=== PATIENT | male | born 1960 | race Caucasian/White ===

== ENCOUNTER 2024-11-16 18:44 | Emergency (ER) | payer OTHER, SELFPAY ==
[2024-11-16 18:47] VITALS: BP 149/92
--- NOTE | 2024-11-16 18:56 | ED.GENMED ---
ED Provider Triage
<John Mckay PA-C - Last Filed: 11/16/24 18:57>
-
Patient seen by provider in Triage?: Seen in Triage
64-year-old male presents with acute nosebleed beginning several hours prior to arrival. Primarily from the left nare. Not on blood thinners. There is mild amount of active bleeding from the left anterior nare, unable to visualize source, placed
epinephrine soaked cottonball into the nare with nasal clamp applied with good hemostasis
History of Present Illness
<John Mckay PA-C - Last Filed: 11/16/24 18:57>
General
Chief Complaint: Nose Bleed
Time Seen by Provider: 11/16/24 21:14
<Meliton Butler MD - Last Filed: 11/16/24 23:28>
General
Source: patient
Exam Limitations: none
History of Present Illness
History of Present Illness:
Patient with a nosebleed from the left nares. Started after blowing hard after eating dinner. History of chronic nasal congestion. No other bleeding issues.
Past History
<John Mckay PA-C - Last Filed: 11/16/24 18:57>
Past History
ED Past Medical History: HTN and Other (IBS, migraines)
ED Past Surgical History: Orthopedic and Other
Social History
Tobacco: Non-smoker
Alcohol: Occasional
Drug: None
Personal: Single
Living: with family
Employment: Employed
Family History
Family History: Other
Review of Systems
<Meliton Butler MD - Last Filed: 11/16/24 23:28>
Review of Systems
All Other Systems: Not applicable
Phy Exam
<Meliton Butler MD - Last Filed: 11/16/24 23:28>
Physical Exam
Physical Exam:
General: Nontoxic appearing in no distress
Skin: Warm and dry, no rash
Neuro: Alert, nontoxic, grossly nonfocal
Psychiatric: Good eye contact and appropriate
ENT:. Small cotton swab in the left nares. A small amount of blood. Nasal pincher in place. No active bleeding. Removed. Significant boggy turbinates but no active bleeding from the left or right side. Posterior pharynx clear.
Course
<John Mckay PA-C - Last Filed: 11/16/24 18:57>
Vital Signs
Initial and Last Documented VS:
Initial Vital Signs
Temp Pulse Resp BP Pulse Ox
98.2 F 89 18 149/92 98
11/16/24 18:47 11/16/24 18:47 11/16/24 18:47 11/16/24 18:47 11/16/24 18:47
Last Documented Vital Signs
Temp Pulse Resp BP Pulse Ox
98.2 F 64 18 123/77 98
11/16/24 18:47 11/16/24 22:45 11/16/24 22:45 11/16/24 22:45 11/16/24 18:47
<eMliton Butler MD - Last Filed: 11/16/24 23:28>
Vital Signs
Initial and Last Documented VS:
Initial Vital Signs
Temp Pulse Resp BP Pulse Ox
98.2 F 89 18 149/92 98
11/16/24 18:47 11/16/24 18:47 11/16/24 18:47 11/16/24 18:47 11/16/24 18:47
Last Documented Vital Signs
Temp Pulse Resp BP Pulse Ox
98.2 F 64 18 123/77 98
11/16/24 18:47 11/16/24 22:45 11/16/24 22:45 11/16/24 22:45 11/16/24 18:47
Procedures
<Meliton Butler MD - Last Filed: 11/16/24 23:28>
Nosebleed
Drug treatment: Lidocaine and Epinephrine
Treatment: Merocel packing
Post treatment bleeding: none- good control
<Meliton Butler MD - Last Filed: 11/16/24 23:28>
*Critical Care Note
Total Time (30-74mins, 75-104mins- exclusive of procedures): Not Applicable
<Meliton Butler MD - Last Filed: 11/16/24 23:28>
Update Note
Update Note:
Recheck. No obvious source of bleeding after initial epinephrine soaked gauze. Merisel placed. Recheck no bleeding.
ED Attending Note
<John Mckay PA-C - Last Filed: 11/16/24 18:57>
-
Portions of this chart may have been created with voice recognition software.� Occasional wrong word or��sound alike� substitutions may have occurred due to the inherent limitations of voice recognition software.
Discharge Plan
Departure
Patient Disposition: Home (Routine Discharge)
Date of Disposition: 11/16/24
Time of Disposition: 22:26
Patient with high blood pressure during this ER visit?: Yes
Discharge Problem:
Epistaxis
Instructions: Nosebleeds (DC)
Prescriptions:
No Action
ibuprofen [Advil Liqui-Gel] 200 MG capsule
200 mg PO PRN PRN (Reason: headache)
levothyroxine 50 MCG tablet
50 mcg PO DAILY
losartan-hydrochlorothiazide 1 EACH tablet
1 ea PO DAILY
ondansetron 4 MG tablet,disintegrating
4 mg PO TIDPRN PRN (Reason: nausea/vomiting) Qty: 14 0RF
alprazolam 0.5 MG tablet
0.5 mg PO Q8HPRN PRN (Reason: anxiety) Qty: 30 0RF
pantoprazole 40 MG tablet,delayed release (DR/EC)
40 mg PO BID Qty: 20 0RF
dicyclomine 10 MG capsule
10 mg PO QID PRN (Reason: abdominal pain) Qty: 20 0RF
Referrals:
Orestes Rolle MD [Active] - Follow up in 2-3 days
UNKNOWN - PT DOES,NOT KNOW [Family Provider] -
Activity Restrictions/Additional Instructions:
Packing removal in 3 to 4 days
Again, I am here this Tuesday from 1:3-9 if ENT is unable to see you
Interventions
Interventions:
*Risk Screen - Suicide Last Done: 11/16/24 20:40
*General Assessment Last Done: 11/16/24 18:47
*Neglect/Abuse Screening Last Done: 11/16/24 20:40
*Nursing Disposition Last Done: 11/16/24 22:47
ED-EENT Assessment Last Done: 11/16/24 20:39
Discharge Date and Time
Discharge Date/Time: 11/16/24 22:47
Print Language: UPPER SORBIAN
[2024-11-16 22:45] VITALS: BP 123/77
== END 2024-11-16 22:47 | disposition home or self-care (01) ==
LOC: EMR 18:44
PROVIDERS: EMERGENCY PHYSICIAN Emergency Medicine
DX: R04.0 Epistaxis (principal); I10 Essential (primary) hypertension
CPT/HCPCS: 99282; 30901